=== PATIENT | female | born 2000 | race Caucasian/White ===

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

== ENCOUNTER 2019-03-30 13:18 | Emergency (ER) | payer MEDICAID, OTHER ==
[~2019-03-30] VITALS: Ht 170.1 cm; Wt 56.8 kg
[2019-03-30] MEDS ORDERED: LACTATED RINGERS 1,000 ML IV ONE (13:52)
--- NOTE | 2019-03-30 13:59 | ED Syncope ---
General Chief Complaint: Dizziness/Syncope Stated Complaint: PASSED OUT - PREG. Nursing Triage Note: PT REPORTS SHE WAS SITTING AT HER FRIENDS ET "PASSED OUT". REPORTS A FRIEND HELPED HER TO THE GROUND. ABRASIONS NOTED TO BLE. PT DENIES STRIKING HER HEAD. PT ALSO REPORTS SHE IS , UNSURE EXACTLY HOW FAR ALONG. Source of Information: Patient Exam Limitations: No Limitations History of Present Illness Date Seen by Provider: Mar 30, 2019 Time Seen by Provider: 13:36 Initial Comments Here with report of passing out. She was sitting in a chair and got lightheaded. She said she freaked out a little bit and stood up and then passed out. Her friend caught her and guide her to the floor but she did scrape her shins bilaterally. Denies other injury. She states that in her life she has passed out before. Unsure of what was going on although she is only been out for about an hour. She does report drinking 2 glasses of water. States that she is but unsure how far along. Believes her last menstrual period was December 21. Denies vaginal bleeding or discharge. She has done intake interview at Dr. Albarado's office and will see Dr. Albarado soon. Timing/Prior Episodes: Remote History, Single Episode Today Symptoms Prior to Episode: Injury (bilateral anterior lower legs) Precipitating Factors: Sitting Loss of Consciousness: Brief (Seconds) Current Symptoms: Back to Normal Allergies and Home Medications Allergies Coded Allergies: No Known Drug Allergies (Unverified , 02/24/10) Home Medications No Active Prescriptions or Reported Meds Patient Home Medication List Home Medication List Reviewed: Yes Review of Systems Constitutional: no symptoms reported EENTM: no symptoms reported Respiratory: no symptoms reported Cardiovascular: see HPI; No chest pain, No palpitations Gastrointestinal: No abdominal pain, No nausea, No vomiting Genitourinary: no symptoms reported : Yes Expected Date of Delivery: Sep 28, 2019 LMP: Dec 21, 2018 Musculoskeletal: no symptoms reported Skin: see HPI, change in color, lumps Psychiatric/Neurological: Denies Headache; Other (lightheaded) Past Hksizou-Nbfprs-Nxovwl Hx Past Med/Social Hx: Reviewed Nursing Past Med/Soc Hx Patient Social History Alcohol Use: Denies Use Recreational Drug Use: Yes Drug of Choice: MARIJUANA X1 MONTH AGO Smoking Status: Former Smoker Type Used: Cigarettes Former Smoker, Quit: Jan 31, 2019 Recent Foreign Travel: No Contact w/Someone Who Travel: No Recent Infectious Disease Expo: No Recent Hopitalizations: No Ebola Symptoms: Denies Symptoms Listed Physical Abuse: No Sexual Abuse: No Mistreated: No Fear: No Immunizations Up To Date Tetanus Booster (TDap): Less than 5yrs Past Medical History Surgeries: Yes (WISDOM TEETH) Respiratory: No Cardiac: Yes (SYNCOPAL EPISODES) Neurological: No Hx : 1 Hx Para: 0 Hx Total # of Abortions (Sp): 0 Reproductive Disorders: No Gastrointestinal: No Musculoskeletal: No Endocrine: No HEENT: No Cancer: No Psychosocial: No Integumentary: No Blood Disorders: No Family Medical History Reviewed Nursing Family Hx Physical Exam Vital Signs Vital Signs - First Documented 03/30/19 03/30/19 13:24 15:15 Temp 36.7 Pulse 87 Resp 16 B/P (MAP) 116/82 Pulse Ox 95 O2 Delivery Room Air Capillary Refill : Height, Weight, BMI Height: 5'4.00" Weight: 130lbs. oz. [id number]; 19.00 BMI Method:Estimated General Appearance: No Apparent Distress, WD/WN HEENT: PERRL/EOMI, Pharynx Normal Neck: Non Tender, Supple Cardiovascular: Regular Rate, Rhythm, No Murmur Respiratory: Lungs Clear, Normal Breath Sounds Gastrointestinal: Non Tender, Soft Back: Normal Inspection, No CVA Tenderness, No Vertebral Tenderness Extremities: Normal Range of Motion, Non Tender Neurologic/Psychiatric: Alert, Oriented x3 Cranial Nerves: Normal Hearing, Normal Speech, PERRL Coordination/Gait: Normal Gait Motor/Sensory: No Motor Deficit, No Sensory Deficit Skin: Warm/Dry, Other (scattered abrasions along the anterior tibial margin on both lower legs in the area mid shaft. Bleeding controlled.) Procedures/Interventions Suture Size: 5-0 Progress/Results/Core Measures Results/Orders Lab Results Laboratory Tests Test 03/30/19 13:58 03/30/19 14:46 Range/Units White Blood Count 10.2 4.3-11.0 10^3/uL Red Blood Count 3.87 L 4.35-5.85 10^6/uL Hemoglobin 12.6 11.5-16.0 G/DL Hematocrit 35 35-52 % Mean Corpuscular Volume 92 80-99 FL Mean Corpuscular Hemoglobin 33 25-34 PG Mean Corpuscular Hemoglobin Concent 36 32-36 G/DL Red Cell Distribution Width 12.1 10.0-14.5 % Platelet Count 173 130-400 10^3/uL Mean Platelet Volume 9.7 7.4-10.4 FL Neutrophils (%) (Auto) 74 42-75 % Lymphocytes (%) (Auto) 16 12-44 % Monocytes (%) (Auto) 7 0-12 % Eosinophils (%) (Auto) 3 0-10 % Basophils (%) (Auto) 0 0-10 % Neutrophils # (Auto) 7.6 1.8-7.8 X 10^3 Lymphocytes # (Auto) 1.6 1.0-4.0 X 10^3 Monocytes # (Auto) 0.7 0.0-1.0 X 10^3 Eosinophils # (Auto) 0.3 0.0-0.3 10^3/uL Basophils # (Auto) 0.0 0.0-0.1 10^3/uL Sodium Level 137 135-145 MMOL/L Potassium Level 3.7 3.6-5.0 MMOL/L Chloride Level 106 98-107 MMOL/L Carbon Dioxide Level 24 21-32 MMOL/L Anion Gap 7 5-14 MMOL/L Blood Urea Nitrogen 6 L 7-18 MG/DL Creatinine 0.63 0.60-1.30 MG/DL Estimat Glomerular Filtration Rate > 60 BUN/Creatinine Ratio 10 Glucose Level 83 70-105 MG/DL Calcium Level 9.3 8.5-10.1 MG/DL Corrected Calcium 9.3 8.5-10.1 MG/DL Total Bilirubin 0.4 0.1-1.0 MG/DL Aspartate Amino Transf (AST/SGOT) 13 5-34 U/L Alanine Aminotransferase (ALT/SGPT) 11 0-55 U/L Alkaline Phosphatase 54 40-136 U/L Total Protein 6.7 6.4-8.2 GM/DL Albumin 4.0 3.2-4.5 GM/DL Urine Color YELLOW Urine Clarity SLIGHTLY CLOUDY Urine pH 8 5-9 Urine Specific [place] 1.015 L 1.016-1.022 Urine Protein 2+ H NEGATIVE Urine Glucose (UA) NEGATIVE NEGATIVE Urine Ketones 1+ H NEGATIVE Urine Nitrite NEGATIVE NEGATIVE Urine Bilirubin NEGATIVE NEGATIVE Urine Urobilinogen NORMAL NORMAL MG/DL Urine Leukocyte Esterase NEGATIVE NEGATIVE Urine RBC (Auto) NEGATIVE NEGATIVE Urine RBC NONE /HPF Urine WBC NONE /HPF Urine Squamous Epithelial Cells 5-10 /HPF Urine Crystals NONE /LPF Urine Amorphous Sediment LARGE RONAL PHOSPHATE H /LPF Urine Bacteria TRACE /HPF Urine Casts NONE /LPF Urine Mucus NEGATIVE /LPF Urine Culture Indicated NO My Orders Orders - MISHA ROQUE MD Cbc With Automated Diff (03/30/19 13:52) Comprehensive Metabolic Panel (03/30/19 13:52) Ua Culture If Indicated (03/30/19 13:52) Ed Iv/Invasive Line Start (03/30/19 13:52) Lactated Ringers (Lr 1000 Ml Iv Solution (03/30/19 13:52) Medications Given in ED Current Medications Medications Dose Ordered Sig/Minerva Route Start Time Stop Time Status Last Admin Dose Admin Lactated Ringer's 1,000 ml @ 0 mls/hr Q0M ONCE IV 03/30/19 13:52 03/30/19 13:54 DC 03/30/19 14:03 1,000 MLS/HR Vital Signs/I&O 03/30/19 03/30/19 13:24 15:15 Temp 36.7 Pulse 87 69 Resp 16 18 B/P (MAP) 116/82 113/58 Pulse Ox 95 O2 Delivery Room Air Progress Progress Note : Progress Note Seen and evaluated. IV, labs and UA ordered. LR 1 L bolus. Bedside ultrasound performed by me shows positive movement with heart tones at approximately 150. Fever length measurements 3 were 13-5/7, 14-1/7 and 14-4/7. Based on the 14 date, estimation of last menstrual period lines up and EDC would be 28 September 2019. Monitor patient. 1520: Labs and UA are reviewed and no significant findings. She is overall doing much better. She did have 1+ ketones in the urine but I think that should be cleared with the liter of LR that was given. I did discuss with her at length the importance of vitamins and she will get those and start them today. She has appointment with Dr. Albarado on April 19. I encouraged her to call the office to see if they want an appointment earlier given the new estimation of dates. I will send a copy of the chart to Dr. Albarado's office. Discharged home with return precautions. Patient verbalize understanding instructions and agreement with plan. Departure Impression Primary Impression: Syncope Qualified Codes: R55 - Syncope and collapse Additional Impression: 14 weeks gestation of Disposition: 01 HOME, SELF-CARE Condition: Improved Departure-Patient Inst. Decision time for Depature: 15:26 Referrals: NO,LOCAL PHYSICIAN (PCP/Family) Primary Care Physician Patient Instructions: - The Fourth Month, Syncope (Fainting) (DC) Add. Discharge Instructions: All discharge instructions reviewed with patient and/or family. Voiced understanding. Follow-up with Dr. Albarado as scheduled. Call her office on Monday and let them know that you were seen in the emergency department. A copy of your chart was sent to her office. Drink plenty of fluids and eat a normal diet. You may benefit from small meals frequently and consider high fiber. It is very important that you started your vitamins today and continue that. Return for worse pain, fever, vomiting, weakness, dizziness, difficulty with walking or going to the bathroom or other concerns as needed. You may use antibiotic ointment and Band-Aids over the wounds on her lower legs. Scripts No Active Prescriptions or Reported Meds Copy Copies To 1: NITHIN ALBARADO TIMOTHY D MD Mar 30, 2019 13:59
[2019-03-30 14:10] LABS: BASOPHILS % (AUTO) 0 % (0-10); EOSINOPHILS # (AUTO) 0.3 10^3/uL (0.0-0.3); EOSINOPHILS % (AUTO) 3 % (0-10); HEMATOCRIT 35 % (35-52); HEMOGLOBIN 12.6 G/DL (11.5-16.0); LYMPHOCYTES # (AUTO) 1.6 X 10^3 (1.0-4.0); LYMPHOCYTES % (AUTO) 16 % (12-44); MEAN CORPUSCULAR HEMOGLOBIN 33 PG (25-34); MEAN CORPUSCULAR HGB CONC 36 G/DL (32-36); MEAN CORPUSCULAR VOLUME 92 FL (80-99); MEAN PLATELET VOLUME 9.7 FL (7.4-10.4); MONOCYTES # (AUTO) 0.7 X 10^3 (0.0-1.0); MONOCYTES % (AUTO) 7 % (0-12); NEUTROPHILS # (AUTO) 7.6 X 10^3 (1.8-7.8); NEUTROPHILS % (AUTO) 74 % (42-75); PLATELET COUNT 173 10^3/uL (130-400); RED CELL DISTRIBUTION WIDTH 12.1 % (10.0-14.5); WHITE BLOOD COUNT 10.2 10^3/uL (4.3-11.0)
[2019-03-30 14:24] LABS: ALANINE AMINOTRANSFERASE 11 U/L (0-55); ALKALINE PHOSPHATASE 54 U/L (40-136); BILIRUBIN,TOTAL 0.4 MG/DL (0.1-1.0); BUN/CREATININE RATIO 10; CALCIUM 9.3 MG/DL (8.5-10.1); CARBON DIOXIDE 24 MMOL/L (21-32); CHLORIDE 106 MMOL/L (98-107); CREATININE SERUM 0.63 MG/DL (0.60-1.30); GFR ESTIMATED > 60; GLUCOSE 83 MG/DL (70-105); POTASSIUM 3.7 MMOL/L (3.6-5.0); SODIUM 137 MMOL/L (135-145); TOTAL PROTEIN 6.7 GM/DL (6.4-8.2)
[2019-03-30 14:52] LABS: BILIRUBIN,URINE NEGATIVE (NEGATIVE); CLARITY,URINE SLIGHTLY CLOUDY; COLOR,URINE YELLOW; GLUCOSE, URINE (UA) NEGATIVE (NEGATIVE); KETONES,URINE 1+ (NEGATIVE); LEUKOCYTE ESTERASE ,URINE NEGATIVE (NEGATIVE); NITRITE,URINE NEGATIVE (NEGATIVE); PH,URINE 8 (5-9); PROTEIN,URINE 2+ (NEGATIVE); UROBILINOGEN,URINE NORMAL (NORMAL)
[2019-03-30 15:00] LABS: AMORPHOUS SEDIMENT,UR LARGE AMOR PHOSPHATE /LPF; BACTERIA,URINE TRACE /HPF
[2019-03-30] MEDS ORDERED: TETANUS,DIPTH,PERTUSS P/F (BOOSTRIX) 0.5 ML VIAL IM ONE (15:45)
== END 2019-03-30 15:50 | disposition home or self-care (01) ==
LOC: EDUNIT# 13:18 → ER 13:19
DX: O26.892 Other specified pregnancy related conditions, second trimester (principal); R55 Syncope and collapse; Z3A.14 14 weeks gestation of pregnancy; Z87.891 Personal history of nicotine dependence
CPT/HCPCS: 36415; 80053; 81000; 85025; 90471; 90715; 96360

== ENCOUNTER → 2019-04-10 | Outpatient (CLI) | payer MEDICAID ==
--- NOTE | 2019-04-10 11:44 | Diagnostic Imaging Report ---
INDICATION: Second trimester bleeding. COMPARISON: There are no prior studies available for comparison. FINDINGS: There is a single live fetus in variable presentation. heart motion was noted and a rate of 146 BPM was recorded. The growth parameters are fairly uniform and suggest that the estimated gestational age is 14 weeks 6 days +/- 1 week. There were no obvious abnormalities identified. However I would recommend that a short term (6-8 week) follow-up exam be performed for more sensitive evaluation of the anatomy. The placenta is anterior and there is no previa. The amniotic fluid volume is within normal limits. The cervix measures 3.4 cm in length. There is an area of mixed predominantly diminished echogenicity adjacent to the gestational sac near the uterine fundus on the left. This measures 5.6 x 3.5 x 6.4 cm and is most likely secondary to a subchorionic hemorrhage. The possibility that this is related to the spontaneous of a twin would be less likely but should still be considered. The ovaries were not visualized. There is no solid pelvic mass or free fluid collection noted. IMPRESSION: 1. There is a single live fetus approximately 14 weeks 6 days gestation +/- 1 week. The EDC is October 03, 2019. 2. There were no obvious abnormalities identified. Recommendations as above. 3. The area of altered echogenicity adjacent to the gestational sac in the uterine fundus on the left is most likely due to a subchronic hemorrhage. TECHNIQUE: Multiple real-time grayscale images were obtained over the gravid uterus. COMPARISON: None FINDINGS: Biometrical measurements are as follows: Biparietal 2.76 cm, age 15 weeks 0 days. Head circumference 9.63 cm, age 14 weeks 3 days. Abdominal circumference 8.39 cm, age 14 weeks 5 days. Femur length 1.61 cm, age 14 weeks 6 days. Sonographic estimate age: 14 weeks 6 days. Sonographic estimated date of delivery: 10/03/2019. Estimated Weight: 105 gm (+/- 15 gm). LMP percentile: 5%. heart rate: 146 beats per minute. number: 1 of 1. Dictated by: Dictated on workstation # [id number]
== END ==
LOC: RAD 10:23
PROVIDERS: ATTEND Obstetrics & Gynecology
DX: O46.92 Antepartum hemorrhage, unspecified, second trimester (principal); Z3A.14 14 weeks gestation of pregnancy
CPT/HCPCS: 76805

== ENCOUNTER → 2019-05-13 | Outpatient (CLI) | payer MEDICAID ==
--- NOTE | 2019-05-13 15:03 | Diagnostic Imaging Report ---
INDICATION: survey. TECHNIQUE: Multiple real-time grayscale images were obtained over the gravid uterus. COMPARISON: 04/10/2019. FINDINGS: There is a single live fetus in a breech presentation. heart rate was recorded at 133 bpm. Placenta is anterior. Amniotic fluid volume is normal. Previously noted subchorionic hemorrhage is not appreciated on today's study. Cervical length is 3.5 cm. kidneys, bladder and stomach are unremarkable. brain is unremarkable. Spine is unremarkable. Four-chamber heart view as well as the three-vessel cord and cord insertion views are not well-seen on today's exam. Biometrical measurements are as follows: Biparietal 4.18 cm, age 18 weeks 5 days. Head circumference 16.01 cm, age 18 weeks 6 days. Abdominal circumference 13.27 cm, age 18 weeks 6 days. Femur length 3.03 cm, age 19 weeks 3 days. Sonographic estimate age: 19 weeks 0 days. Sonographic estimated date of delivery: 10/07/2019. Estimated Weight: 270 gm (+/- 39 gm). LMP percentile: 3%. heart rate: 133 beats per minute. number: 1 of 1. IMPRESSION: Single live IUP 19 weeks 0 days gestational age showing normal interval growth when compared with prior examination from 04/10/2019. survey is unremarkable although the four-chamber heart view as well as the cord views were are not well demonstrated. Follow-up could be performed. Dictated by: Dictated on workstation # [id number]
== END ==
LOC: RAD 10:06
PROVIDERS: ATTEND Obstetrics & Gynecology
DX: O46.92 Antepartum hemorrhage, unspecified, second trimester (principal); O41.8X20 Other specified disorders of amniotic fluid and membranes, second trimester, not applicable or unspecified; Z3A.19 19 weeks gestation of pregnancy
CPT/HCPCS: 76805

== ENCOUNTER → 2019-06-28 | Outpatient (CLI) | payer MEDICAID ==
--- NOTE | 2019-06-28 15:00 | Diagnostic Imaging Report ---
INDICATION: Follow-up anatomy. TECHNIQUE: Multiple real-time grayscale images were obtained over the gravid uterus. COMPARISON: 05/13/2019. FINDINGS: There is a single live fetus in a cephalic presentation. heart rate was recorded at 133 bpm. Placenta is anterior. Amniotic fluid volume is normal. Cervical length is approximately 3.4 cm. Four-chamber heart view is identified on today's study. There is a three-vessel cord with normal insertion identified today. IMPRESSION: Unremarkable limited obstetrical ultrasound. Dictated by: Dictated on workstation # [id number]
== END ==
LOC: RAD 11:57
PROVIDERS: ATTEND Nurse Practitioner Women's Health
DX: Z36.89 Encounter for other specified antenatal screening (principal)
CPT/HCPCS: 76816

== ENCOUNTER 2019-09-20 07:00 | Inpatient (IN) | payer MEDICAID ==
[2019-09-20] VITALS (53 sets, daily range): BP systolic 110–175; BP diastolic 52–102
[~2019-09-20] VITALS: Ht 170.2 cm; Wt 75.1 kg
--- NOTE | 2019-09-20 07:00 | NUR ---
Arrived to unit ambulates self for induction of labor. Wt obtained and to room 320. Gowned and urine sample obtained. To bed and oriented to room, call light and surroundings. bed controls explained. plan of care reviewed with pt.
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
--- OUTSIDE RECORDS SUMMARY | 2019-09-20 07:20 | XMS REPORT ---
Author Author Yen MOELLER Organization [facility] Address [address] [place] [address] Care Team Providers Care Environmental Associate Name Role Phone MICAELA MOELLER Unavailable PROBLEMS Unknown Problems ALLERGIES No Known Allergies ENCOUNTERS Encounter Location Date Diagnosis [facility] [address] [place] [id number] Jan, Sore throat J02.9 and Dysfun ction of right eustachian tube H69.81 [facility] [address] [address] 14 Aug, 2017 Acute bacterial conjunctivit is of right eye H10.31 [facility] [address] [address] 13 Aug, 2017 Acute bacterial conjunctivit is of right eye H10.31 [facility] [address] [phone] 02 Aug, 2017 Dysuria R30.0 and UTI sympto ms R39.9 [facility] [address] [phone] Jun, Pharyngitis due to other org anism J02.8 [facility] [id number] [place] [phone] Apr, IMMUNIZATIONS No Known Immunizations SOCIAL HISTORY Never Assessed REASON FOR VISIT sore throat, cough and fever x 3 days.--WALI Fitzgerald PLAN OF CARE Activity Details Follow Up if not improving with PCP or reg follow up Reason: VITAL SIGNS Weight 135 lbs 2018-03-02 Temperature 97.9 degrees Fahrenheit 2018-03-02 Heart Rate 84 bpm 2018-03-02 Respiratory Rate 18 2018-03-02 Blood pressure systolic 124 mmHg 2018-03-02 Blood pressure diastolic 64 mmHg 2018-03-02 MEDICATIONS Medication Instructions Dosage Frequency Start Date End Date Duration S ramona Cetirizine HCl 10 mg Orally Once a day 1 tablet 24h Jan, 8 May, 30 day(s) Active Flonase 50 MCG/ACT Nasally Once a day 1 spray in each nostril 24h Jan, 30 day(s) Active RESULTS Name Result Date Reference Range STREP A (IN HOUSE) 2018-03-02 STREP A Negative Control + Lot # [id number] Exp date 05/2018 PROCEDURES Procedure Date Ordered Result Body Site STREP A ASSAY W/OPTIC Mar 02, 2018 INSTRUCTIONS MEDICATIONS ADMINISTERED No Known Medications
[2019-09-20] MEDS ORDERED: D5 LR IV SOLUTION 1,000 ML IV ONE (08:28)
[2019-09-20] MEDS ORDERED: AMPICILLIN FOR IV USE 2,000 MG in WATER (STERILE) FOR INJECTION 14.8 ML IV ONE (08:28)
[2019-09-20] MEDS ORDERED: AMPICILLIN FOR IV USE 2,000 MG VIAL ONE (08:29)
[2019-09-20] MEDS ORDERED: WATER (STERILE) FOR INJECTION 20 ML ONE (08:29)
[2019-09-20] MEDS ORDERED: MINERAL OIL CONCENTRATE 99.9% 15 ML UDC TOP PRN (08:30)
[2019-09-20 08:38] LABS: BILIRUBIN,URINE NEGATIVE (NEGATIVE); CLARITY,URINE CLEAR; COLOR,URINE YELLOW; GLUCOSE, URINE (UA) NEGATIVE (NEGATIVE); KETONES,URINE NEGATIVE (NEGATIVE); LEUKOCYTE ESTERASE ,URINE 2+ (NEGATIVE); NITRITE,URINE NEGATIVE (NEGATIVE); PROTEIN,URINE NEGATIVE (NEGATIVE)
[2019-09-20 08:39] LABS: BASOPHILS % (AUTO) 0 % (0-10); EOSINOPHILS # (AUTO) 0.2 10^3/uL (0.0-0.3); EOSINOPHILS % (AUTO) 2 % (0-10); HEMATOCRIT 34 % (35-52); HEMOGLOBIN 11.7 G/DL (11.5-16.0); LYMPHOCYTES # (AUTO) 2.2 X 10^3 (1.0-4.0); LYMPHOCYTES % (AUTO) 23 % (12-44); MEAN CORPUSCULAR HEMOGLOBIN 31 PG (25-34); MEAN CORPUSCULAR HGB CONC 35 G/DL (32-36); MEAN CORPUSCULAR VOLUME 90 FL (80-99); MEAN PLATELET VOLUME 10.5 FL (7.4-10.4); MONOCYTES # (AUTO) 0.8 X 10^3 (0.0-1.0); MONOCYTES % (AUTO) 8 % (0-12); NEUTROPHILS # (AUTO) 6.4 X 10^3 (1.8-7.8); NEUTROPHILS % (AUTO) 67 % (42-75); PLATELET COUNT 230 10^3/uL (130-400); RED CELL DISTRIBUTION WIDTH 12.3 % (10.0-14.5); WHITE BLOOD COUNT 9.5 10^3/uL (4.3-11.0)
[2019-09-20] MEDS: D5 LR IV SOLUTION 1,000 ML IV SCH ×2 (08:42→16:14)
[2019-09-20] MEDS ORDERED: LACTATED RINGERS 1,000 ML IV SCH (08:48)
[2019-09-20 08:56] LABS: BACTERIA,URINE FEW /HPF
[2019-09-20] MEDS ORDERED: TERBUTALINE INJ 1 MG/ML (BRETHINE) AMP SC PRN (09:00)
[2019-09-20] MEDS ORDERED: MISOPROSTOL 100 MCG (CYTOTEC) TAB ONE (09:17)
[2019-09-20] MEDS ORDERED: PREN-37 PO (09:36)
[2019-09-20] MEDS: AMPICILLIN FOR IV USE 1,000 MG in WATER (STERILE) FOR INJECTION 7.4 ML IV SCH ×3 (12:40→20:28)
[2019-09-20] MEDS ORDERED: MISOPROSTOL 100 MCG (CYTOTEC) TAB PO SCH (13:00)
[2019-09-20] MEDS ORDERED: OXYTOCIN PRE-MIX DRIP 500 ML IV SCH ×2 (13:29→19:36)
[2019-09-20] MEDS ORDERED: fentaNYL 2 mcg/ml BUPIVA 0.125 100 ML ONE (14:14)
[2019-09-20] MEDS ORDERED: fentaNYL INJECTION 100 MCG/2 ML AMP ONE (14:48)
[2019-09-20] MEDS: EPIDURAL (fentaNYL 2 MCG/ML BUPIVA 0.125%)100 ML BAG EPI SCH ×2 (14:59→21:57)
[2019-09-20] MEDS ORDERED: LACTATED RINGERS 1,000 ML IV ONE (15:22)
[2019-09-20] MEDS ORDERED: CATHETER FLUSH 10 ML SYR IV PRN (15:30)
[2019-09-20] MEDS ORDERED: NALOXONE 0.4 MG/ML 1 ML (NARCAN) VIAL IV PRN (15:30)
[2019-09-20] MEDS: CATHETER FLUSH 10 ML SYR IV SCH ×2 (15:51→23:32)
[2019-09-20] MEDS ORDERED: LIDOCAINE/EPI 2% 1:200,00 (XYLOCAINE) 10 ML VIAL ONE (19:20)
--- NOTE | 2019-09-20 19:43 | OB Labor & Delivery Record ---
Vag Delivery Note Vag Delivery Note Date of Delivery: 09/20/19 Preoperative Diagnosis: Yen Madrid is a (20 /Para 1 /0 ,Gestational Age 39 weeks, GBS positive, social induction Postoperative Diagnosis: Same Surgeon: NITHIN ALBARADO Anesthesia: epidural Delivery Type: vaginal Findings: Viable female infant, apgars pending, weight pending Lacerations: 1st degree perineal Intact placenta with 3 vessel cord. No nuchal cord, body cord or shoulder dystocia Estimated Blood Loss: 200 ml Complications: None Condition: Stable Description of Procedure: The patient is a 19 year old female who presented for social induction at 39 weeks. She was admitted and informed consent was obtained. Her labor course was remarkable for GBS prophylaxis with ampicillin. She had misoprostol x 1 orally due to the GBS (did not want to AROM), and then AROM with clear fluid and augmentation with oxytocin. She progressed to complete dilatation and began to push. She was then set up for delivery. The 's head was delivered atraumatically in the JASWANT position. The shoulders and remainder of the 's body were then delivered without difficulty. Upon delivery, the head was held below the level of the perineum and the mouth and nares were bulb suctioned. The cord was doubly clamped and cut and the was handed off to the pediatric staff. An intact placenta with 3-vessel cord delivered via Guru and there was found to be minimal bleeding.~ Vigorous fundal massage was performed and the fundus was found to be firm. IV oxytocin was given. Examination of the vagina and perineum revealed a 1st laceration repaired in the usual fashion with 3-0 vicryl suture. Following the repair, sponge, instrument and needle counts were correct. Mom and baby were both in stable condition in the labor suite. Vitals - Labs Vital Signs - I&O Vital Signs Date Time Temp Pulse Resp B/P (MAP) Pulse Ox O2 Delivery O2 Flow Rate FiO2 09/20/19 18:58 86 18 144/69 (94) 100 Room Air 09/20/19 18:53 83 18 152/73 (99) 100 Room Air 09/20/19 18:35 84 18 138/72 (94) Room Air 09/20/19 18:20 75 18 128/67 (87) Room Air 09/20/19 18:05 77 18 118/69 (85) Room Air 09/20/19 17:50 68 18 130/77 (94) 100 Room Air 09/20/19 17:30 84 100 Room Air 09/20/19 17:25 86 18 133/79 (97) 100 Room Air 09/20/19 17:15 73 100 Room Air 09/20/19 17:10 78 18 133/81 (98) 100 Room Air 09/20/19 17:00 73 100 Room Air 09/20/19 16:55 37.3 74 18 134/81 (98) 100 Room Air 09/20/19 16:45 77 100 Room Air 09/20/19 16:40 72 18 129/76 (93) 99 Room Air 09/20/19 16:30 75 99 Room Air 09/20/19 16:25 81 18 133/80 (97) 99 Room Air 09/20/19 16:15 77 99 Room Air 09/20/19 16:10 76 18 144/81 (102) 98 Room Air 09/20/19 16:00 80 99 Room Air 09/20/19 15:55 75 18 110/84 (93) 99 Room Air 09/20/19 15:45 87 99 Room Air 09/20/19 15:35 76 18 144/63 (90) 98 Room Air 09/20/19 15:30 75 99 Room Air 09/20/19 15:25 80 18 137/78 (97) 99 Room Air 09/20/19 15:21 79 18 139/70 (93) Room Air 09/20/19 15:18 83 18 147/72 (97) 99 Room Air 09/20/19 15:15 86 18 144/70 (94) 99 Room Air 09/20/19 15:12 75 18 139/73 (95) 99 Room Air 09/20/19 15:09 77 18 131/74 (93) 98 Room Air 09/20/19 15:06 79 18 130/77 (94) Room Air 09/20/19 15:03 37.2 75 18 136/78 (97) 99 Room Air 09/20/19 15:00 78 18 134/78 (96) 99 Room Air 09/20/19 14:58 80 18 127/80 (96) 99 Room Air 09/20/19 14:55 77 18 119/74 (89) 99 Room Air 09/20/19 14:50 76 18 141/82 (101) 98 Room Air 09/20/19 14:45 60 18 145/80 (101) 99 Room Air 09/20/19 14:35 78 18 141/84 (103) 99 Room Air 09/20/19 14:25 75 18 134/73 (93) Room Air 09/20/19 13:30 37.0 09/20/19 12:25 77 18 129/90 (103) Room Air 09/20/19 10:25 74 18 139/85 (103) Room Air 09/20/19 09:25 72 18 130/84 (99) Room Air 09/20/19 07:30 37.1 84 18 97 Room Air Labs Laboratory Tests 09/20/19 07:05: Urine Color YELLOW, Urine Clarity CLEAR, Urine pH 7.0, Urine Specific [place] 1.015L, Urine Protein NEGATIVE, Urine Glucose (UA) NEGATIVE, Urine Ketones NEGATIVE, Urine Nitrite NEGATIVE, Urine Bilirubin NEGATIVE, Urine Urobilinogen 0.2, Urine Leukocyte Esterase 2+H, Urine RBC (Auto) NEGATIVE, Urine RBC NONE, Urine WBC 5-10H, Urine Squamous Epithelial Cells 5-10, Urine Crystals NONE, Urine Bacteria FEWH, Urine Casts NONE, Urine Mucus SMALLH, Urine Culture I ndicated YES 09/20/19 07:55: White Blood Count 9.5, Red Blood Count 3.76L, Hemoglobin 11.7, Hematocrit 34L, Mean Corpuscular Volume 90, Mean Corpuscular Hemoglobin 31, Mean Corpuscular Hemoglobin Concent 35, Red Cell Distribution Width 12.3, Platelet Count 230, Mean Platelet Volume 10.5H, Neutrophils (%) (Auto) 67, Lymphocytes (%) (Auto) 23, Monocytes (%) (Auto) 8, Eosinophils (%) (Auto) 2, Basophils (%) (Auto) 0, Neutrophils # (Auto) 6.4, Lymphocytes # (Auto) 2.2, Monocytes # (Auto) 0.8, Eosinophils # (Auto) 0.2, Basophils # (Auto) 0.0 NITHIN ALBARADO DO Sep 20, 2019 19:43
[2019-09-20] MEDS ORDERED: MEASLES,MUMPS,RUBELLA 1 EA INJ SQ ONE (19:45)
[2019-09-20] MEDS ORDERED: WITCH HAZEL(TUCKS) 40 EA JAR TOP PRN (19:45)
[2019-09-20] MEDS ORDERED: TETANUS,DIPTH,PERTUSS P/F (BOOSTRIX) 0.5 ML VIAL IM ONE (19:45)
[2019-09-20] MEDS ORDERED: BENZOCAINE/MENTHOL (DERMOPLAST) 60 ML CAN TP PRN (19:45)
[2019-09-20] MEDS ORDERED: CATHETER FLUSH 10 ML SYR IV SCH (22:00)
[2019-09-20] MEDS ORDERED: IBUP-844 PO (23:16)
[2019-09-20] MEDS ORDERED: ACET-93 PO (23:16)
[2019-09-20] MEDS ORDERED: FERR325T18 PO (23:16)
[2019-09-20] MEDS ORDERED: DCS100C PO (23:16)
--- NOTE | 2019-09-20 23:18 | Discharge Inst-Women's Service ---
Discharge Inst-Women's Serv Depart Medication/Instructions New, Converted or Re-Newed RX: Transmitted to Pharmacy Final Diagnosis social induction GBS + Problems Reviewed?: Yes Consults/Follow Up Additional Follow Up: Yes (1-2 weeks with Mirta or phone call (make an appointment on Monday [phone]) and 6 weeks for post exam) Activity Activity: Activity as Tolerated Driving Instructions: You May Drive NO SMOKING: NO SMOKING Nothing Inside Vagina: No Douching, No [place], No Tampons Diet Discharge Diet: No Restrictions Symptoms to Report to : Bleeding Excessive, Pain Increased, Fever Over 101 D egrees F, Vaginal Bleeding Increase, Cramps in Feet or Legs, Vaginal Discharge Foul For Any Problems or Questions: Contact Your Physician Skin/Wound Care Bathing Instructions: NITHIN Bedoya DO Sep 20, 2019 23:18
[2019-09-20] MEDS: DOCUSATE SODIUM 100 MG (COLACE) CAP PO SCH (23:49)
[2019-09-20] MEDS: IBUPROFEN 600 MG (MOTRIN) TAB PO SCH (23:49)
[2019-09-20] MEDS: ACETAMINOPHEN 500 MG TAB (TYLENOL) PO SCH (23:50)
[2019-09-21] VITALS (8 sets, daily range): BP systolic 116–144; BP diastolic 64–83
--- NOTE | 2019-09-21 00:05 | NUR ---
Pt. ambulated to bathroom with standby assist without difficulty. Positive void noted. Will transfer to PP room 309 shortly.
--- NOTE | 2019-09-21 01:00 | NUR ---
Pt. moved to PP room 309. Pt. oriented to room, call light, and thermostat. Fresh ice water provided, PP folder given and explained.
[2019-09-21] MEDS: IBUPROFEN 600 MG (MOTRIN) TAB PO SCH ×4 (05:43→23:35)
[2019-09-21 06:47] LABS: BASOPHILS % (AUTO) 0 % (0-10); EOSINOPHILS # (AUTO) 0.1 10^3/uL (0.0-0.3); EOSINOPHILS % (AUTO) 1 % (0-10); HEMATOCRIT 34 % (35-52); HEMOGLOBIN 11.7 G/DL (11.5-16.0); LYMPHOCYTES # (AUTO) 1.9 X 10^3 (1.0-4.0); LYMPHOCYTES % (AUTO) 12 % (12-44); MEAN CORPUSCULAR HEMOGLOBIN 31 PG (25-34); MEAN CORPUSCULAR HGB CONC 35 G/DL (32-36); MEAN CORPUSCULAR VOLUME 90 FL (80-99); MEAN PLATELET VOLUME 10.4 FL (7.4-10.4); MONOCYTES # (AUTO) 1.1 X 10^3 (0.0-1.0); MONOCYTES % (AUTO) 7 % (0-12); NEUTROPHILS # (AUTO) 12.3 X 10^3 (1.8-7.8); NEUTROPHILS % (AUTO) 80 % (42-75); PLATELET COUNT 210 10^3/uL (130-400); RED CELL DISTRIBUTION WIDTH 12.3 % (10.0-14.5); WHITE BLOOD COUNT 15.5 10^3/uL (4.3-11.0)
[2019-09-21] MEDS: ACETAMINOPHEN 500 MG TAB (TYLENOL) PO SCH ×2 (08:50→18:00)
[2019-09-21] MEDS: FERROUS SULF 325 MG (IRON) TAB PO SCH (08:50)
[2019-09-21] MEDS: PRENATAL VITAMIN 1 EA TAB PO SCH (08:50)
[2019-09-21] MEDS: DOCUSATE SODIUM 100 MG (COLACE) CAP PO SCH ×2 (08:50→19:58)
--- NOTE | 2019-09-21 08:50 | NUR ---
initial shift assessment completed, see interventions for further.
--- NOTE | 2019-09-21 12:26 | Progress Note ---
Subjective Subjective Date Seen by Provider: Sep 21, 2019 Time Seen by Provider: 12:21 Doing well. Bleeding less than a period. Pain well controlled. No complaints. Objective Exam Vital Signs Vital Signs - First Documented 09/20/19 09/20/19 07:30 09:25 Temp 37.1 Pulse 84 Resp 18 B/P (MAP) 130/84 (99) Pulse Ox 97 O2 Delivery Room Air Capillary Refill : Less Than 3 Seconds General Appearance: No Apparent Distress, WD/WN Respiratory: Lungs Clear Cardiovascular: Regular Rate, Rhythm Gastrointestinal: Other (fundus firm below umbilicus) Extremity: Normal Inspection, Pedal Edema Neurologic/Psychiatric: Alert, Oriented x3 Results Lab Laboratory Tests 09/21/19 06:03: White Blood Count 15.5H, Red Blood Count 3.75L, Hemoglobin 11.7, Hematocrit 34L, Mean Corpuscular Volume 90, Mean Corpuscular Hemoglobin 31, Mean Corpuscular Hemoglobin Concent 35, Red Cell Distribution Width 12.3, Platelet Count 210, Mean Platelet Volume 10.4, Neutrophils (%) (Auto) 80H, Lymphocytes (%) (Auto) 12, Monocytes (%) (Auto) 7, Eosinophils (%) (Auto) 1, Basophils (%) (Auto) 0, Neutrophils # (Auto) 12.3H, Lymphocytes # (Auto) 1.9, Monocytes # (Auto) 1.1H, Eosinophils # (Auto) 0.1, Basophils # (Auto) 0.0 Assessment/Plan Assessment/Plan Admission Status: Inpatient Order (span 2 midnights) Reason for Inpatient Admission: Term vaginal delivery. Assessment and Plan Post day 1 from 39 wga vaginal delivery. Problems: (1) care and examination Assessment & Plan: Doing well. Labs and vitals stable. Home tomorrow. Clinical Quality Measures DVT/VTE Risk/Contraindication: Risk Factor Score Per Nursin RFS Level Per Nursing on Admit: 1=Low/No VTE PPX TRUDI MARTINEZ MD Sep 21, 2019 12:25
--- NOTE | 2019-09-21 19:13 | NUR ---
report given to next shift.
[2019-09-22] MEDS: ACETAMINOPHEN 500 MG TAB (TYLENOL) PO SCH (05:52)
[2019-09-22] MEDS: IBUPROFEN 600 MG (MOTRIN) TAB PO SCH (05:52)
[2019-09-22 05:56] VITALS: BP 123/72
--- NOTE | 2019-09-22 09:02 | NUR ---
here. dismissal orders received.
--- NOTE | 2019-09-22 09:04 | Discharge Summary ---
Diagnosis/Chief Complaint Date of Admission Sep 20, 2019 at 07:15 Date of Discharge Admission Diagnosis Admission Diagnosis Term induction of labor. Discharge Diagnosis Term vaginal delivery. Problems/Diagnosis: (1) care and examination Assessment & Plan: Patient with vaginal delivery on 09/[address] Solomon. Post- course was uneventful. Patient with no concerns or complaints. Discharge Summary-Simple/Stand Discharge Physical Examination Allergies: Coded Allergies: No Known Drug Allergies (Unverified , 02/24/10) Vitals & I&Os Vital Sign - Last 12Hours Date Time Temp Pulse Resp B/P (MAP) Pulse Ox O2 Delivery O2 Flow Rate FiO2 09/22/19 05:56 36.8 67 16 123/72 (89) 98 Room Air General Appearance: Alert, Oriented X3 HEENT: Atraumatic Respiratory: Clear to Auscultation Cardiovascular: Regular Rate Abdominal: Other (fundus firm below umbilicus) Extremities: No Edema Hospital Course See final discharge diagnosis. Discharge Instructions to patient/family Please see electronic discharge instructions given to patient. Discharge Medications Reviewed and agree with Discharge Medication list on patient's Discharge Instruction sheet Clinical Quality Measures DVT/VTE Risk/Contraindication: Risk Factor Score Per Nursin RFS Level Per Nursing on Admit: 1=Low/No VTE PPX TRUDI MARTINEZ MD Sep 22, 2019 09:04
[2019-09-22 09:30] VITALS: BP 123/79
--- NOTE | 2019-09-22 09:30 | NUR ---
initial shift assessment completed, see interventions for further. POC reviewed, states understanding.
[2019-09-22] MEDS: DOCUSATE SODIUM 100 MG (COLACE) CAP PO SCH (09:32)
[2019-09-22] MEDS: FERROUS SULF 325 MG (IRON) TAB PO SCH (09:32)
[2019-09-22] MEDS: PRENATAL VITAMIN 1 EA TAB PO SCH (09:32)
--- NOTE | 2019-09-22 10:53 | NUR ---
dismissal instructions given, verbalizes understanding. reviewed medications, administration schedule and instructed pt to call for follow up appointments. signature page signed, placed on chart.
--- NOTE | 2019-09-22 11:05 | NUR ---
pt ambulated to private vehicle with FARTUN Adrian, and s/o @ side. secured in rear facing car seat. pt stable with no sx's of distress noted.
== END 2019-09-22 11:05 | disposition home or self-care (01) | DRG 807 ==
LOC: LDRP 07:15
PROVIDERS: ADMIT Obstetrics & Gynecology; ATTEND Obstetrics & Gynecology
PROC: 10E0XZZ Delivery of Products of Conception, External Approach (ICD-10-PCS; principal; 2019-09-20)
PROC: 0HQ9XZZ Repair Perineum Skin, External Approach (ICD-10-PCS; 2019-09-20)
PROC: 3E0DXGC Introduction of Other Therapeutic Substance into Mouth and Pharynx, External Approach (ICD-10-PCS; 2019-09-20)
DX: O99.824 Streptococcus B carrier state complicating childbirth (principal); O70.0 First degree perineal laceration during delivery; Z37.0 Single live birth; Z3A.39 39 weeks gestation of pregnancy
CPT/HCPCS: 36415; 81000; 85025; 86850; 86900; 86901; 87077; 87088

== ENCOUNTER 2023-01-18 10:18 | Emergency (ER) | payer MEDICAID ==
[~2023-01-18] VITALS: Ht 170.2 cm; Wt 56.7 kg
[~2023-01-18 10:18] MED LIST changes: +ACET-93 PO; +DOCU-239 PO; +FERR325T18 PO; +IBUP-844 PO; +PREN-37 PO
--- NOTE | 2023-01-18 10:34 | ED Integumentary General ---
General Stated Complaint: CYST ON RT CHEEK History of Present Illness Date Seen by Provider: Jan 18, 2023 Time Seen by Provider: 10:29 Initial Comments 22 yo Female presents with abscess on her right cheek. She reports that its been there a little small formed for about a month within the last couple days it really significantly larger. She went to urgent care who started her on Keflex. She presents because it continues to get a little bit sore. Allergies and Home Medications Allergies Coded Allergies: No Known Drug Allergies (Unverified , 02/24/10) Patient Home Medication List Home Medication List Reviewed: Yes Acetaminophen (Acetaminophen) 500 Mg Tablet, 1,000 MG PO Q8HR Prescribed by: NITHIN ALBARADO on 09/20/192315 Docusate Sodium (Dok) 100 Mg Capsule, 100 MG PO BID Prescribed by: NITHIN ALBARADO on 09/20/192315 Ferrous Sulfate (Ferrous Sulfate) 325 Mg Tablet, 325 MG PO DAILY@0800 Prescribed by: NITHIN ALBARADO on 09/20/192315 Ibuprofen (Ibu) 600 Mg Tablet, 600 MG PO Q6H Prescribed by: NITHIN ALBARADO on 09/20/19 231 Vit/Iron Fumarate/FA ( Tablet) 1 Each Tablet, 1 EACH PO DAILY, (Reported) Entered as Reported by: DELLA CARRIZALES on 09/20/19 0936 Sulfamethoxazole/Trimethoprim (Bactrim Ds Tablet) 1 Each Tablet, 1 EACH PO BID Prescribed by: ARTEM CARLISLE on 01/18/23 1047 Review of Systems Review of Systems Constitutional: see HPI EENTM: see HPI Respiratory: no symptoms reported Cardiovascular: no symptoms reported Gastrointestinal: no symptoms reported Genitourinary: no symptoms reported Musculoskeletal: no symptoms reported Skin: see HPI Psychiatric/Neurological: No Symptoms Reported Past Hgqkvro-Rntyha-Acesdg Hx Immunizations Up To Date Tetanus Booster (TDap): Less than 5yrs PED Vaccines UTD: No Seasonal Allergies Seasonal Allergies: No Past Medical History Surgeries: Yes (WISDOM TEETH) Respiratory: No Cardiac: Yes (SYNCOPAL EPISODES/ at beginning of ) Neurological: No Reproductive Disorders: No Genitourinary: No Gastrointestinal: No Musculoskeletal: No Endocrine: No HEENT: No Cancer: No Psychosocial: No Integumentary: No Blood Disorders: No Adverse Reaction/Blood Tranf: No Family Medical History Asthma 19 MOTHER Hypertension 19 FATHER Physical Exam Vital Signs Vital Signs - First Documented 01/18/23 01/18/23 10:22 10:54 Temp 36.3 Pulse 65 Resp 18 B/P (MAP) 120/82 (95) Pulse Ox 100 O2 Delivery Room Air Capillary Refill : General Appearance: WD/WN, no apparent distress Cardiovascular: normal peripheral pulses, regular rate, rhythm Respiratory: chest non-tender, lungs clear Skin: tattoos/piercings Skin Problem Location: face Skin Problem Character: abscess Procedures/Interventions I&D : Blade Size: I & D Procedure: betadine prep Progress Abscess was opened with 16-gauge needle following numbing with lidocaine. Based on being an abscess on her face trying to prevent scarring this was used in place of an 11 blade. There was mild mucopurulent drainage. Suture Size: 5-0 Progress/Results/Core Measures Results/Orders Vital Signs/I&O 01/18/23 01/18/23 10:22 10:54 Temp 36.3 36.6 Pulse 65 69 Resp 18 17 B/P (MAP) 120/82 (95) 118/67 Pulse Ox 100 O2 Delivery Room Air Room Air Progress Progress Note : Progress Note Abscess to right jawline. It was I&D and I will switch her antibiotics to Bactrim. She is stable and discharged home Departure Impression Primary Impression: Abscess of external cheek, right Disposition: 01 HOME, SELF-CARE Condition: Stable Departure-Patient Inst. Referrals: [facility] (PCP/Family) Primary Care Physician Patient Instructions: Skin Abscess, Abscess Incision and Drainage ED Add. Discharge Instructions: Please use warm compress 3-4 times daily for the time. Please continue to expel purulent material. Take antibiotics as prescribed Scripts Sulfamethoxazole/Trimethoprim (Bactrim Ds Tablet) 1 Each Tablet 1 EACH PO BID, #20 TAB Prov: ARTEM CARLISLE DO 01/18/23 ARTEM CARLISLE DO Jan 18, 2023 10:34
[2023-01-18] MEDS ORDERED: SULF1TAB38 PO (10:47)
[2023-01-18 10:54] VITALS: BP 118/67
== END 2023-01-18 10:54 | disposition home or self-care (01) ==
LOC: EDUNIT# 10:18 → ER 10:20
DX: L02.01 Cutaneous abscess of face (principal); Z28.310 Unvaccinated for COVID-19
CPT/HCPCS: 87070; 87205; 99282

== ENCOUNTER 2023-03-14 08:13 | Emergency (ER) | payer MEDICAID ==
[~2023-03-14] VITALS: Ht 170 cm; Wt 51.0 kg
[~2023-03-14 08:13] MED LIST changes: +SULF1TAB38 PO
--- NOTE | 2023-03-14 08:35 | ED GU-Female ---
General Chief Complaint: - Reproductive Stated Complaint: UTI | VAGINAL BLEEDING Nursing Triage Note: PT STATES HAVING AN IUD FOR 3 YRS, VAG BLEEDING FOR 3 DAYS, WENT TO [facility] YESTERDAY FOR A PELVIC EXAM AND THEY CONFIRMED CORRECT PLACEMENT, WAS TOLD TO COME HERE IF CONTINUED BLEEDING. PT DOES HAVE A UTI AND IS TO [facility] [employer] TODAY. STATES NO PERIODS SINCE IUD WAS PUT IN. LT LLQ PAIN AT 7 Source: patient Exam Limitations: no limitations History of Present Illness Date Seen by Provider: Mar 14, 2023 Time Seen by Provider: 08:35 Initial Comments Very pleasant 22-year-old female presents to the emergency department for bleeding when she urinates. She states this has been ongoing for 3 days. Was seen at her primary care clinic yesterday and diagnosed with a UTI she did have a pelvic exam performed at that time secondary to complaint of bleeding. She has not had a menstrual cycle for 3 years since she has an IUD in place. They did confirm correct placement of IUD on exam and no blood noted in the vaginal vault at that time. Will obtain straight cath urine to determine if blood is coming from bladder Timing/Duration: other (3 days ago) Severity/Quality: mild, cramping Location: LLQ Radiation: none Activities at Onset: none Prior Genitourinary Problems: none Associated Symptoms: denies symptoms Allergies and Home Medications Allergies Coded Allergies: No Known Drug Allergies (Unverified , 02/24/10) Patient Home Medication List Home Medication List Reviewed: Yes Acetaminophen (Acetaminophen) 500 Mg Tablet, 1,000 MG PO Q8HR Prescribed by: NITHIN ALBARADO on 09/20/192315 Docusate Sodium (Dok) 100 Mg Capsule, 100 MG PO BID Prescribed by: NITHIN ALBARADO on 09/20/192315 Ferrous Sulfate (Ferrous Sulfate) 325 Mg Tablet, 325 MG PO DAILY@0800 Prescribed by: NITHIN ALBARADO on 09/20/192315 Ibuprofen (Ibu) 600 Mg Tablet, 600 MG PO Q6H Prescribed by: NITHIN ALBARADO on 09/20/192315 Vit/Iron Fumarate/FA ( Tablet) 1 Each Tablet, 1 EACH PO DAILY, (Reported) Entered as Reported by: DELLA CARRIZALES on 09/20/19 0936 Sulfamethoxazole/Trimethoprim (Bactrim Ds Tablet) 1 Each Tablet, 1 EACH PO BID Prescribed by: ARTEM CARLISLE on 01/18/23 1047 Review of Systems Review of Systems Constitutional: no symptoms reported EENTM: no symptoms reported Respiratory: no symptoms reported Cardiovascular: no symptoms reported Gastrointestinal: LLQ Genitourinary: hematuria Musculoskeletal: no symptoms reported Skin: no symptoms reported Psychiatric/Neurological: No Symptoms Reported Endocrine: No Symptoms Reported Hematologic/Lymphatic: No Symptoms Reported All Other Systemes Reviewed Negative Unless Noted: Yes Past Khhtsit-Brnruk-Jgonjg Hx Patient Social History Tobacco Use?: Yes Smoking Status: Current Everyday Smoker Smokeless Tobacco Frequency: Current Everyday User Substance use?: No Alcohol Use?: Yes Alcohol Frequency: Once in a while Immunizations Up To Date Tetanus Booster (TDap): Less than 5yrs PED Vaccines UTD: No Seasonal Allergies Seasonal Allergies: No Past Medical History Surgery/Hospitalization HX: DENIES MED HX Surgeries: Yes (WISDOM TEETH) Respiratory: No Cardiac: Yes (SYNCOPAL EPISODES/ at beginning of ) Neurological: No Reproductive Disorders: No Genitourinary: No Gastrointestinal: No Musculoskeletal: No Endocrine: No HEENT: No Cancer: No Psychosocial: No Integumentary: No Blood Disorders: No Adverse Reaction/Blood Tranf: No Family Medical History Asthma 19 MOTHER Hypertension 19 FATHER Physical Exam Vital Signs Vital Signs - First Documented 03/14/23 08:20 Temp 36.3 Pulse 68 Resp 18 B/P (MAP) 138/90 (106) Pulse Ox 99 O2 Delivery Room Air Capillary Refill : Less Than 3 Seconds Height, Weight, BMI Height: 5'4.00" Weight: 130lbs. oz. 58.467608mn; 17.00 BMI Method:Estimated General Appearance: WD/WN, no apparent distress HEENT: PERRL/EOMI Neck: non-tender, full range of motion, supple Cardiovascular: regular rate, rhythm, no edema Respiratory: lungs clear, no respiratory distress Gastrointestinal: non tender, soft, other (intermittent tenderness/ cramping llq) Back: normal inspection Extremities: normal range of motion, non-tender Neurologic/Psychiatric: senior care manager II-XII nml as tested, no motor/sensory deficits Skin: normal color, warm/dry Lymphatic: no adenopathy Procedures/Interventions Suture Size: 5-0 Progress/Results/Core Measures Suspected Sepsis SIRS Temperature: Pulse: 68 Respiratory Rate: 18 Blood Pressure 138 /90 Mean: 106 Results/Orders Lab Results Laboratory Tests Test 03/14/23 08:50 03/14/23 10:18 Range/Units Urine Color ORANGE YELLOW Urine Clarity CLOUDY CLEAR Urine pH 5.5 6.0 5-9 Urine Specific [place] >=1.030 <=1.005 1.016-1.022 Urine Protein 3+ H NEGATIVE NEGATIVE Urine Glucose (UA) NEGATIVE NEGATIVE NEGATIVE Urine Ketones 4+ H 1+ H NEGATIVE Urine Nitrite NEGATIVE NEGATIVE NEGATIVE Urine Bilirubin 2+ H NEGATIVE NEGATIVE Urine Urobilinogen 1.0 0.2 < = 1.0 MG/DL Urine Leukocyte Esterase 2+ H 1+ H NEGATIVE Urine RBC (Auto) 3+ H 3+ H NEGATIVE Urine RBC >100 H 2-5 H /HPF Urine WBC 50-100 H 2-5 /HPF Urine Renal Epithelial Cells 0-2 0-2 /HPF Urine Crystals NONE NONE /LPF Urine Bacteria MODERATE H TRACE /HPF Urine Casts NONE NONE /LPF Urine Mucus SMALL H NEGATIVE /LPF Urine Culture Indicated YES NO My Orders Orders - KAI OMNTERO DO Urine Bedside (03/14/23 08:27) Ua Culture If Indicated (03/14/23 08:27) Us Non Ob Pelvis Comp/Transvag (03/14/23 08:27) Urine Culture (03/14/23 08:50) Urinalysis (03/14/23 10:36) Ceftriaxone Iv/Im (Ceftriaxone Iv/Im) (03/14/23 11:00) Lidocaine 1% Inj 10 Ml (Xylocaine 1% Inj (03/14/23 11:31) Lidocaine 1% Inj 10 Ml (Xylocaine 1% Inj (03/14/23 11:45) Medications Given in ED Current Medications Medications Dose Ordered Sig/Minerva Route Start Time Stop Time Status Last Admin Dose Admin Ceftriaxone Sodium 500 mg ONCE ONCE IM 03/14/23 11:00 03/14/23 11:01 DC 03/14/23 11:38 500 MG Lidocaine HCl 2 ml ONCE ONCE INJ 03/14/23 11:45 03/14/23 11:46 DC 03/14/23 11:39 2 ML Vital Signs/I&O 03/14/23 03/14/23 08:20 11:57 Temp 36.3 36.3 Pulse 68 69 Resp 18 18 B/P (MAP) 138/90 (106) 128/89 Pulse Ox 99 99 O2 Delivery Room Air Room Air Capillary Refill : Less Than 3 Seconds Blood Pressure Mean: 106 Progress Note : Time: 08:29 Progress Note Very pleasant nondistressed nontoxic 22-year-old [facility] of [facility] bleeding versus hematuria. She states that she was seen at her primary clinic yesterday and diagnosed with a urinary tract infection. She states she has had an IUD control device in place for 3 years and has not had a menstrual cycle with this. She states she does have some mild left lower quadrant pain/cramping. No history of ovarian cysts. Patient states she still continues to notice blood when she goes to the bathroom, she states she only notices it when she urinates. Discussed that hemorrhagic cystitis can happen with UTI, will perform a straight cath urine, patient agrees. We will also obtain an ultrasound of the left pelvis to rule out cyst or torsion. If urine indicates significant hematuria we will focus on genitourinary assessment. We will also obtain urine test as she is concerned about this. She states she did have a vaginal exam yesterday at her primary and they did confirm the IUD was in the correct place and no hemorrhage noted in the vaginal vault at that time. She states she had noticed bleeding 2 days before presentation at her clinic she is not bleeding currently states she is not having to wear a pad or tampon. 1137 ultrasound is negative for any significant pathology straight cath urine is significantly different from clean-catch. No significant evidence of UTI no hematuria. Patient did have a pelvic exam by her primary yesterday she defers 1 today as there is been no significant change. She was reassured with ultraso und. IM Rocephin shot administered empirically. Advised continue taking antibiotics prescribed as this may be due to IUD irritation or potential infection although she is not septic no significant evidence of sepsis or severe infection noted on exam. Advised discussed exchanging IUD given though she was told that these are good for 6 years. Does admit to recent intercourse advised pelvic rest may be in order, return immediately if symptoms worsen, she is soaking through pads, increased pain or any other problems or concerns. Patient agrees test is negative. Follow-up with primary or again return for symptoms discussed. Patient agrees. No other concerns she has not had any bleeding since she has been here I feel she is stable for discharge home. Diagnostic Imaging Diagonstic Imaging: Ultrasound Comments FINDINGS: Uterus: The uterus is anteverted and measures 9.5 x 3.3 x 4.7 cm. The myometrium is homogeneous without fibroids. Endometrium: The endometrium is normal in thickness and measures 0.2 cm. An IUD is present in appropriate position within the uterine fundus. Adnexa: Both ovaries have a normal physiologic appearance. The right ovary measures 4.3 x 1.9 x 2.2 cm and the left ovary measures 2.5 x 1.5 x 2.5 cm. Duplex images reveal normal vascular flow to both ovaries. Other: There is no free fluid within the pelvis. IMPRESSION: Unremarkable pelvic ultrasound. Reviewed: Reviewed/Discussed Departure Impression Primary Impression: Urinary tract infection Qualified Codes: N39.0 - Urinary tract infection, site not specified Additional Impression: Vaginal bleeding Disposition: 01 HOME, SELF-CARE Condition: Stable Departure-Patient Inst. Referrals: [facility]/K (PCP/Family) Primary Care Physician Patient Instructions: Urinary Tract Infection, Adult (DC), Absent or irregular periods Work/School Note: Work Release Form Return to Work: Mar 15, 2023 Restrictions: No Restrictions KAI MONTERO DO Mar 14, 2023 08:35
[2023-03-14 09:15] LABS: CLARITY,URINE CLOUDY; COLOR,URINE ORANGE
[2023-03-14 09:16] LABS: BACTERIA,URINE MODERATE /HPF; BILIRUBIN,URINE 2+ (NEGATIVE); GLUCOSE, URINE (UA) NEGATIVE (NEGATIVE); KETONES,URINE 4+ (NEGATIVE); LEUKOCYTE ESTERASE ,URINE 2+ (NEGATIVE); NITRITE,URINE NEGATIVE (NEGATIVE); PH,URINE 5.5 (5-9); PROTEIN,URINE 3+ (NEGATIVE); RBC,URINE >100 /HPF; WBC,URINE 50-100 /HPF
[2023-03-14 09:17] LABS: RENAL EPITHELIAL CELLS,URINE 0-2 /HPF
--- NOTE | 2023-03-14 09:54 | Diagnostic Imaging Report ---
PROCEDURE: Pelvic complete, transabdominal and transvaginal sonogram. Limited pelvic Doppler. TECHNIQUE: Multiple Real-time grayscale images were obtained of the pelvis in various projections transabdominally and transvaginally. Limited pelvic Duplex images were obtained. HISTORY: Left lower quadrant pelvic pain. COMPARISON: None available. FINDINGS: Uterus: The uterus is anteverted and measures 9.5 x 3.3 x 4.7 cm. The myometrium is homogeneous without fibroids. Endometrium: The endometrium is normal in thickness and measures 0.2 cm. An IUD is present in appropriate position within the uterine fundus. Adnexa: Both ovaries have a normal physiologic appearance. The right ovary measures 4.3 x 1.9 x 2.2 cm and the left ovary measures 2.5 x 1.5 x 2.5 cm. Duplex images reveal normal vascular flow to both ovaries. Other: There is no free fluid within the pelvis. IMPRESSION: Unremarkable pelvic ultrasound. Dictated by: Dictated on workstation # [id number]
[2023-03-14] MEDS ORDERED: cefTRIAXone 250 MG VIAL IV/IM IM ONE (11:00)
[2023-03-14 11:22] LABS: CLARITY,URINE CLEAR; COLOR,URINE YELLOW
[2023-03-14 11:23] LABS: BACTERIA,URINE TRACE /HPF; BILIRUBIN,URINE NEGATIVE (NEGATIVE); GLUCOSE, URINE (UA) NEGATIVE (NEGATIVE); KETONES,URINE 1+ (NEGATIVE); LEUKOCYTE ESTERASE ,URINE 1+ (NEGATIVE); NITRITE,URINE NEGATIVE (NEGATIVE); PROTEIN,URINE NEGATIVE (NEGATIVE); RENAL EPITHELIAL CELLS,URINE 0-2 /HPF
[2023-03-14] MEDS ORDERED: LIDOCAINE 1% INJ 10 ML VIAL ONE (11:31)
[2023-03-14] MEDS ORDERED: LIDOCAINE 1% INJ 10 ML VIAL INJ ONE (11:45)
[2023-03-14 11:57] VITALS: BP 128/89
== END 2023-03-14 11:57 | disposition home or self-care (01) ==
LOC: EDUNIT# 08:13 → ER 08:15
DX: N93.9 Abnormal uterine and vaginal bleeding, unspecified (principal); N39.0 Urinary tract infection, site not specified; F17.200 Nicotine dependence, unspecified, uncomplicated; Z97.5 Presence of (intrauterine) contraceptive device
CPT/HCPCS: 76830; 76856; 81000; 84703; 87088; 87186

== ENCOUNTER 2023-05-20 03:16 | Emergency (ER) | payer MEDICAID ==
--- NOTE | 2023-05-20 03:28 | ED EENT ---
History of Present Illness General Chief Complaint: Oral/Throat Problems Stated Complaint: SORE THROAT Source: patient Exam Limitations: no limitations History of Present Illness Date Seen by Provider: May 20, 2023 Time Seen by Provider: 03:28 Initial Comments Patient is a 22-year-old female who presents to the emergency department with a chief complaint of sore throat, painful swallowing, hoarse voice. She states she woke up with symptoms about an hour and a half prior to arrival. She states it is "severe". She took 3 aalj-vbi-fmchyvc ibuprofen, gargled some salt water. She denies fevers. She has had some congestion, no cough. Denies nausea, vomiting, diarrhea. Is on oral control and does not currently have menstrual cycles. Denies dysuria, urgency or frequency. Is not allergic to any medications, does not take any medications. She is a smoker. Denies sick contacts. Is not COVID vaccinated. Denies headache, rashes. Has been fighting a tooth ache left most posterior molar for the last 3 weeks, worse with eating. Timing/Duration: abrupt Severity: severe Location: throat Prearrival Treatment: over the counter meds (600 mg ibuprofen) Associated Symptoms: sore throat Allergies and Home Medications Allergies Coded Allergies: No Known Drug Allergies (Unverified , 02/24/10) Patient Home Medication List Home Medication List Reviewed: Yes Acetaminophen (Acetaminophen) 500 Mg Tablet, 1,000 MG PO Q8HR Prescribed by: NITHIN ALBARADO on 09/20/192315 Docusate Sodium (Dok) 100 Mg Capsule, 100 MG PO BID Prescribed by: NITHIN ALBARADO on 09/20/192315 Ferrous Sulfate (Ferrous Sulfate) 325 Mg Tablet, 325 MG PO DAILY@0800 Prescribed by: NITHIN ALBARADO on 09/20/192315 Ibuprofen (Ibu) 600 Mg Tablet, 600 MG PO Q6H Prescribed by: NITHIN ALBARADO on 09/20/192315 Vit/Iron Fumarate/FA ( Tablet) 1 Each Tablet, 1 EACH PO DAILY, (Reported) Entered as Reported by: DELLA CARRIZALES on 09/20/19 0936 Sulfamethoxazole/Trimethoprim (Bactrim Ds Tablet) 1 Each Tablet, 1 EACH PO BID Prescribed by: ARTEM CARLISLE on 01/18/23 1047 Review of Systems Review of Systems Constitutional: see HPI Eyes: No Symptoms Reported Ears: No Symptoms Reported Nose: congestion (Mild congestion) Mouth: other (Left lower posterior molar discomfort with chewing) Throat: pain Respiratory: no symptoms reported Cardiovascular: no symptoms reported Gastrointestinal: no symptoms reported Musculoskeletal: no symptoms reported Skin: no symptoms reported Neurological: No Symptoms Reported Past Zutnarf-Hekfgf-Dxegvi Hx Immunizations Up To Date Tetanus Booster (TDap): Less than 5yrs PED Vaccines UTD: No Seasonal Allergies Seasonal Allergies: No Past Medical History Surgery/Hospitalization HX: DENIES MED HX Surgeries: Yes (WISDOM TEETH) Respiratory: No Cardiac: Yes (SYNCOPAL EPISODES/ at beginning of ) Neurological: No Reproductive Disorders: No Genitourinary: No Gastrointestinal: No Musculoskeletal: No Endocrine: No HEENT: No Cancer: No Psychosocial: No Integumentary: No Blood Disorders: No Adverse Reaction/Blood Tranf: No Family Medical History Asthma 19 MOTHER Hypertension 19 FATHER Physical Exam Vital Signs Vital Signs - First Documented 05/20/23 03:20 Temp 36.1 Pulse 68 Resp 16 B/P (MAP) 124/62 (82) Pulse Ox 98 O2 Delivery Room Air Height, Weight, BMI Height: 5'4.00" Weight: 130lbs. oz. 58.569821ow; 17.00 BMI Method:Estimated General Appearance: WD/WN, no apparent distress Eyes: bilateral eye normal inspection, bilateral eye PERRL, bilateral eye EOMI Ears: bilateral ear auricle normal, bilateral ear canal normal, bilateral ear TM dull Nose: normal inspection Mouth/Throat: normal mouth inspection, other (Percussive tenderness left mandibular posterior molar; tonsillar erythema without significant swelling or exudate) Neck: full range of motion, lymphadenopathy (R), lymphadenopathy (L) (Shotty anterior cervical lymphadenopathy) Cardiovascular: regular rate, rhythm Respiratory: lungs clear, no respiratory distress, no accessory muscle use Neurologic/Psychiatric: alert, normal mood/affect, oriented x 3 Skin: normal color, warm/dry Procedures/Interventions Suture Size: 5-0 Progress/Results/Core Measures Results/Orders Lab Results Laboratory Tests Test 05/20/23 03:33 Range/Units Group A Streptococcus Screen Not Detected NotDetected My Orders Orders - PAT JONES MD Rapid Strep A Screen (05/20/23 03:42) Vital Signs/I&O 05/20/23 03:20 Temp 36.1 Pulse 68 Resp 16 B/P (MAP) 124/62 (82) Pulse Ox 98 O2 Delivery Room Air Progress Progress Note : Time: 04:17 Progress Note Patient seen and evaluated by me. Evaluation today includes history and physical exam with rapid strep test. Pertinent physical exam findings well- developed well-nourished thin female in no acute distress. HEENT exam remarkable for pharyngeal erythema slightly greater on the right than left. No palatal enanthem, no tonsillar swelling or exudate is appreciated. No significant anterior cervical lymphadenopathy. Ears show mild effusions at the TMs bilaterally without erythema. Lungs are clear, heart is regular, no appreciable rashes. Differential diagnosis includes strep pharyngitis, mono, viral pharyngitis Patient's rapid strep test came back negative. No clinical concerns for infectious mono, the patient's afebrile and has no significant lymphadenopathy. Conservative treatment recommended at this time with Tylenol, ibuprofen and warm salt water gargles. Return precautions provided to the patient and both verbal and written format. She is actually feeling better at the time of discharge and thinks the ibuprofen is improving her symptoms. All questions are sought and answered. Counseling-Symptomatic: 3-10 Minutes Follow-up with PCP to: Discuss Further Options Departure Impression Primary Impression: Acute viral pharyngitis Disposition: 01 HOME, SELF-CARE Condition: Improved Departure-Patient Inst. Decision time for Depature: 04:17 Referrals: [facility] (PCP/Family) Primary Care Physician Patient Instructions: Sore Throat, Adult (DC) Add. Discharge Instructions: Continue warm salt water gargles 3-4 times daily for the next couple of days. You can alternate extra strength Tylenol 2 tablets with ibuprofen 3 tablets every 3 hours. Always take ibuprofen with food. If you develop fever over 101, worsening sore throat, any other emergent, conc erning symptoms please return to the emergency department for reevaluation. Copy Copies To 1: SAMANTHA JOYA KATHRYN M MD May 20, 2023 03:28
[2023-05-20 04:20] VITALS: BP 124/62
== END 2023-05-20 04:21 | disposition home or self-care (01) ==
LOC: EDUNIT# 03:16 → ER 03:18
DX: J02.8 Acute pharyngitis due to other specified organisms (principal)
CPT/HCPCS: 87430; 99283